=== PATIENT | male | born 2000 ===

== ENCOUNTER → 2021-02-09 17:40 | Outpatient (CLI) | payer OTHER, SELFPAY ==
[2021-02-09 18:18] LABS: COVID19 -Nasal RAPID Negative (Negative)
== END ==
PROVIDERS: Visit Provider Nurse Practitioner Family
DX: Z20.822 Contact with and (suspected) exposure to COVID-19 (principal)
CPT/HCPCS: 87635

== ENCOUNTER → 2021-08-15 13:33 | Outpatient (CLI) | payer OTHER, SELFPAY ==
[2021-08-15 15:26] LABS: Urine N gonorrhoeae NOT DETECTED
[2021-08-15 15:29] LABS: Urine Chlamydia NOT DETECTED
== END ==
PROVIDERS: Visit Provider Nurse Practitioner Family
DX: Z13.9 Encounter for screening, unspecified (principal)
CPT/HCPCS: 87491; 87591

== ENCOUNTER → 2021-08-15 13:50 | Outpatient (CLI) | payer OTHER, SELFPAY ==
[2021-08-15 17:17] LABS: Hepatitis B Surface Antigen NEGATIVE s/c (NEGATIVE)
[2021-08-15 17:30] LABS: HIV 1 & 2 Ab/Ag 4th Gen Combo NEGATIVE (NEGATIVE); Hep C Virus Ab w/Reflex Quant NEGATIVE s/c (NEGATIVE)
[2021-08-16 05:14] LABS: RPR Screen Non Reactive (Non Reactive)
[2021-08-16 06:19] LABS: HSV 2 IGG AB < 0.91 index (0.00-0.90); HSV1IGG < 0.91 index (0.00-0.90)
[2021-08-16 18:32] LABS: HSV I/II IgM <0.91 Ratio (0.00-0.90)
== END ==
PROVIDERS: Referring Provider Nurse Practitioner Family; Visit Provider Nurse Practitioner Family
DX: Z71.1 Person with feared health complaint in whom no diagnosis is made (principal); Z11.3 Encounter for screening for infections with a predominantly sexual mode of transmission; N50.819 Testicular pain, unspecified; Z13.9 Encounter for screening, unspecified
CPT/HCPCS: 36415; 86592; 86694; 86695; 86696; 86803; 87340; 87389; 87491; 87591

== ENCOUNTER → 2023-03-25 17:14 | Outpatient (CLI) | payer OTHER, SELFPAY ==
[2023-03-26 03:23] LABS: RPR Screen Non Reactive (Non Reactive)
[2023-03-26 16:47] LABS: Hepatitis B Surface Antigen NEGATIVE s/c (NEGATIVE)
[2023-03-26 17:08] LABS: HIV 1 & 2 Ab/Ag 4th Gen Combo NEGATIVE (NEGATIVE); Hep C Virus Ab w/Reflex Quant NEGATIVE s/c (NEGATIVE)
== END ==
PROVIDERS: Referring Provider Nurse Practitioner Family; Visit Provider Nurse Practitioner Family
DX: N48.9 Disorder of penis, unspecified (principal)
CPT/HCPCS: 36415; 86592; 86695; 86696; 86803; 87340; 87389

== ENCOUNTER → 2023-05-20 12:54 | Outpatient (CLI) | payer OTHER, SELFPAY ==
[2023-05-20 15:44] LABS: Urine N gonorrhoeae NOT DETECTED
[2023-05-20 15:46] LABS: Urine Chlamydia NOT DETECTED
[2023-05-21 05:37] LABS: HBsAg Screen Negative (Negative); Hepatitis A Antibody IgM Negative (Negative); Hepatitis B Core Antibody IgM Negative (Negative); Hepatitis C Antibody Non Reactive (Non Reactive); RPR Screen Non Reactive (Non Reactive)
== END ==
PROVIDERS: Referring Provider Internal Medicine; Visit Provider Internal Medicine
DX: L30.9 Dermatitis, unspecified (principal)
CPT/HCPCS: 36415; 80074; 86592; 87491; 87591